=== PATIENT | male | born 1955 | race African-American/Black ===

== ENCOUNTER 2020-09-01 14:49 | Outpatient (CLI) | payer MEDICARE | END 2020-09-01 14:50 | disposition home or self-care (01) | LOC: CSHMRI 14:49 | PROVIDERS: ATTEND Nurse Practitioner Family | DX: M47.816 Spondylosis without myelopathy or radiculopathy, lumbar region (principal); M51.36 Other intervertebral disc degeneration, lumbar region; M48.061 Spinal stenosis, lumbar region without neurogenic claudication; Q76.49 Other congenital malformations of spine, not associated with scoliosis | CPT/HCPCS: 72148 ==

== ENCOUNTER 2021-10-02 09:07 | Outpatient (CLI) | payer MEDICARE | END 2021-10-02 09:08 | disposition home or self-care (01) | LOC: CSHMRI 09:07 | PROVIDERS: ATTEND Neurological Surgery | DX: M54.12 Radiculopathy, cervical region (principal); M50.021 Cervical disc disorder at C4-C5 level with myelopathy | CPT/HCPCS: 72141 ==